=== PATIENT | female | born 1960 | race Caucasian/White ===

== ENCOUNTER 2016-06-19 18:52 | Inpatient (IN) | payer OTHER ==
[~2016-06-19] VITALS: Ht 157.5 cm; Wt 75.5 kg
[~2016-06-19 18:52] MED LIST: COL100UDC NG; COR200 NG; FERL NG; FORTAZ IV; HEP5I SC; IND10 NG; IPRATROPIUM BROM3 M2 HHN; LAC NG; MOR10I IV; PROT40I IV; ZOFI IV; ZOS3PM IV; [UNRECOGNIZED DRUG - CODE] IV
[2016-06-19 21:14] LABS: BASOPHIL % 0.4 % (0-2); PLATELET COUNT 159 x10^3mcL (130-400)
[2016-06-19 21:17] LABS: RED CELL DISTRIBUTION WIDTH 15.3 % (11.5-14.5)
[2016-06-19 21:23] LABS: ALKALINE PHOSPHATASE 168 U/L (46-116); ALT/SGPT 34 U/L (14-59); AMYLASE 31 U/L (25-115); AST/SGOT 26 U/L (15-37); BILIRUBIN TOTAL 11.7 mg/dL (0.20-1.00); CALCIUM 8.1 mg/dL (8.5-10.1); CARBON DIOXIDE 31.5 mmol/L (21-32); CHLORIDE SERUM 100 mmol/L (98-107); CREATININE SERUM 0.5 mg/dL (0.6-1.0); GFR1 > 60 mL/min; GLUCOSE SERUM 145 mg/dL (74-106); LIPASE 163 IU/L (73-393); SODIUM SERUM 137 mmol/L (136-145)
[2016-06-19 21:26] LABS: ALBUMIN 2.4 g/dL (3.4-5.0)
[2016-06-19 21:28] LABS: POTASSIUM SERUM 2.9 mmol/L (3.5-5.1)
[2016-06-19 23:59] VITALS: BP 139/69
[2016-06-20] LABS: CHOLESTEROL/HDL RATIO 8.4
[2016-06-20 00:09] LABS: FREE T4 6.37 ng/dL (0.76-1.46); T3 TOTAL 4.7 ng/mL
[2016-06-20 00:11] LABS: FREE THYROXINE INDEX 8.5 ug/dL (1.4-4.5); T4(THYROXINE) 20.7 ug/dL (4.7-13.3)
[2016-06-20 01:09] LABS: BILIRUBIN DIRECT 9.62 mg/dL (0.0-0.2); BILIRUBIN TOTAL 11.8 mg/dL (0.20-1.00)
[2016-06-20 06:19] LABS: CHLORIDE SERUM 105 mmol/L (98-107); CREATININE SERUM 0.4 mg/dL (0.6-1.0); GFR1 > 60 mL/min; GLUCOSE SERUM 120 mg/dL (74-106); MAGNESIUM 1.9 mg/dL (1.8-2.4); PHOSPHOROUS 3.4 mg/dL (2.5-4.9); POTASSIUM SERUM 3.3 mmol/L (3.5-5.1); SODIUM SERUM 140 mmol/L (136-145)
[2016-06-20 06:53] LABS: PLATELET COUNT 120 x10^3mcL (130-400); RED CELL DISTRIBUTION WIDTH 15.5 % (11.5-14.5)
[2016-06-20 10:08] VITALS: BP 126/62
[2016-06-20 13:29] VITALS: BP 112/59
[2016-06-20 16:14] VITALS: BP 101/58
[2016-06-20 20:46] VITALS: BP 113/59
[2016-06-21 05:31] VITALS: BP 139/64
[2016-06-21 06:13] LABS: BASOPHIL % 0.3 % (0-2)
[2016-06-21 06:35] LABS: ALKALINE PHOSPHATASE 114 U/L (46-116); ALT/SGPT 24 U/L (14-59); AST/SGOT 30 U/L (15-37); BILIRUBIN TOTAL 7.1 mg/dL (0.20-1.00); CALCIUM 7.8 mg/dL (8.5-10.1); CARBON DIOXIDE 27.5 mmol/L (21-32); CHLORIDE SERUM 107 mmol/L (98-107); CREATININE SERUM 0.4 mg/dL (0.6-1.0); GFR1 > 60 mL/min; GLUCOSE SERUM 98 mg/dL (74-106); MAGNESIUM 1.7 mg/dL (1.8-2.4); PHOSPHOROUS 3.4 mg/dL (2.5-4.9); SODIUM SERUM 143 mmol/L (136-145)
[2016-06-21 06:36] LABS: ALBUMIN 1.6 g/dL (3.4-5.0); TOTAL PROTEIN, SERUM 5.7 g/dL (6.4-8.2)
[2016-06-21 06:59] LABS: PLATELET COUNT 119 x10^3mcL (130-400); RED CELL DISTRIBUTION WIDTH 15.6 % (11.5-14.5)
[2016-06-21 09:35] VITALS: BP 149/74
[2016-06-21 17:00] VITALS: BP 140/62
[2016-06-21 22:02] VITALS: BP 119/60
[2016-06-22 05:52] LABS: BASOPHIL % 0.3 % (0-2); PLATELET COUNT 149 x10^3mcL (130-400)
[2016-06-22 06:10] VITALS: BP 106/60
[2016-06-22 06:10] LABS: CALCIUM 8.1 mg/dL (8.5-10.1); CARBON DIOXIDE 28.2 mmol/L (21-32); CHLORIDE SERUM 108 mmol/L (98-107); CREATININE SERUM 0.5 mg/dL (0.6-1.0); GFR1 > 60 mL/min; GLUCOSE SERUM 140 mg/dL (74-106); MAGNESIUM 1.8 mg/dL (1.8-2.4); PHOSPHOROUS 4.1 mg/dL (2.5-4.9); SODIUM SERUM 144 mmol/L (136-145)
[2016-06-22 06:44] LABS: RED CELL DISTRIBUTION WIDTH 16.3 % (11.5-14.5)
[2016-06-22 10:40] VITALS: BP 105/54
[2016-06-22 14:20] VITALS: BP 106/58
[2016-06-22 16:10] VITALS: Ht 157.5 cm; Wt 75.5 kg
[2016-06-22 18:05] VITALS: BP 96/50
[2016-06-22 20:25] VITALS: BP 112/52
[2016-06-23 05:29] VITALS: BP 110/57
[2016-06-23 05:39] LABS: BASOPHIL % 0.2 % (0-2); PLATELET COUNT 134 x10^3mcL (130-400)
[2016-06-23 05:51] LABS: ALBUMIN 1.5 g/dL (3.4-5.0); ALKALINE PHOSPHATASE 89 U/L (46-116); ALT/SGPT 23 U/L (14-59); AST/SGOT 31 U/L (15-37); BILIRUBIN TOTAL 3.2 mg/dL (0.20-1.00); CALCIUM 7.7 mg/dL (8.5-10.1); CARBON DIOXIDE 29.4 mmol/L (21-32); CHLORIDE SERUM 110 mmol/L (98-107); CREATININE SERUM 0.5 mg/dL (0.6-1.0); GFR1 > 60 mL/min; GLUCOSE SERUM 109 mg/dL (74-106); MAGNESIUM 1.5 mg/dL (1.8-2.4); POTASSIUM SERUM 3.5 mmol/L (3.5-5.1); SODIUM SERUM 145 mmol/L (136-145); TOTAL PROTEIN, SERUM 5.6 g/dL (6.4-8.2)
[2016-06-23 06:40] LABS: RED CELL DISTRIBUTION WIDTH 15.6 % (11.5-14.5)
[2016-06-23 09:40] VITALS: BP 112/58
[2016-06-23] MEDS ORDERED: IND10 PO (11:39)
[2016-06-23] MEDS ORDERED: COL100 PO (11:41)
[2016-06-23] MEDS ORDERED: LAC PO (11:42)
[2016-06-23] MEDS ORDERED: NORCO1 TA2 PO (11:44)
[2016-06-23] MEDS ORDERED: KEFLEX500 M1 PO (11:44)
[2016-06-23] MEDS ORDERED: MOT600 PO (11:45)
[2016-06-23 15:00] VITALS: BP 112/58
[2016-06-23 16:53] VITALS: BP 115/70
== END 2016-06-23 17:23 | disposition home or self-care (01) | DRG 263 ==
LOC: ED 18:52 → DU 22:38 → MU 06-23 08:29
PROVIDERS: Emergency Medicine; Family Medicine; Surgery; ADMIT Family Medicine
PROC: 0FT44ZZ Resection of Gallbladder, Percutaneous Endoscopic Approach (ICD-10-PCS; 2016-06-21)
PROC: 0F9440Z Drainage of Gallbladder with Drainage Device, Percutaneous Endoscopic Approach (ICD-10-PCS; 2016-06-21)
PROC: 0FT44ZZ Resection of Gallbladder, Percutaneous Endoscopic Approach (ICD-10-PCS; 2016-06-21)
PROC: 0F798DZ Dilation of Common Bile Duct with Intraluminal Device, Via Natural or Artificial Opening Endoscopic (ICD-10-PCS; principal; 2016-06-21 10:00)
DX: K80.01 Calculus of gallbladder with acute cholecystitis with obstruction (principal); N17.0 Acute kidney failure with tubular necrosis; E43 Unspecified severe protein-calorie malnutrition; I10 Essential (primary) hypertension; E80.6 Other disorders of bilirubin metabolism; E87.6 Hypokalemia; E05.90 Thyrotoxicosis, unspecified without thyrotoxic crisis or storm; H54.2 Low vision, both eyes; K83.1 Obstruction of bile duct; E83.42 Hypomagnesemia; Z83.3 Family history of diabetes mellitus
CPT/HCPCS: 43262; 80307; 83880; 84439; 94150; C1769; C2625; J0295; J0330; J0690; J1610; J1800; J2175; J2250; J2270; J2405; J2704; J2710; J3010; J3475; J3480; J3490; J7030; J7120; Q0092; Q9967

== ENCOUNTER 2017-09-28 06:42 | Day surgery (SDC) | payer OTHER ==
[2017-09-27 12:42] LABS: BASOPHIL % 0.2 % (0-2); PLATELET COUNT 185 x10^3mcL (130-400); RED CELL DISTRIBUTION WIDTH 15.4 % (11.5-14.5)
[2017-09-27 12:51] LABS: CALCIUM 8.6 mg/dL (8.5-10.1); CARBON DIOXIDE 29.8 mmol/L (21-32); CHLORIDE SERUM 105 mmol/L (98-107); CREATININE SERUM 0.7 mg/dL (0.6-1.0); GFR1 > 60 mL/min; GLUCOSE SERUM 108 mg/dL (74-106); POTASSIUM SERUM 4.2 mmol/L (3.5-5.1); SODIUM SERUM 140 mmol/L (136-145)
[~2017-09-28] VITALS: Ht 160 cm; Wt 78.0 kg
[~2017-09-28 06:42] MED LIST changes: +COL100 PO; +IND10 PO; +KEFLEX500 M1 PO; +LAC PO; +MOT600 PO; +NORCO1 TA2 PO
[2017-09-28 06:56] VITALS: BP 153/89
[2017-09-28 11:43] VITALS: BP 122/75
== END 2017-09-28 10:20 | disposition home or self-care (01) ==
LOC: DS 06:42 → OR 07:30 → DS 10:20
PROVIDERS: Internal Medicine Gastroenterology
PROC: 0FPB8DZ Removal of Intraluminal Device from Hepatobiliary Duct, Via Natural or Artificial Opening Endoscopic (ICD-10-PCS; principal; 2017-09-28 07:30)
PROC: 0FC98ZZ Extirpation of Matter from Common Bile Duct, Via Natural or Artificial Opening Endoscopic (ICD-10-PCS; 2017-09-28 07:30)
PROC: 0FC78ZZ Extirpation of Matter from Common Hepatic Duct, Via Natural or Artificial Opening Endoscopic (ICD-10-PCS; 2017-09-28 07:30)
DX: Z46.89 Encounter for fitting and adjustment of other specified devices (principal); K80.50 Calculus of bile duct without cholangitis or cholecystitis without obstruction; I10 Essential (primary) hypertension; E05.90 Thyrotoxicosis, unspecified without thyrotoxic crisis or storm; G40.909 Epilepsy, unspecified, not intractable, without status epilepticus; Z86.73 Personal history of transient ischemic attack (TIA), and cerebral infarction without residual deficits
CPT/HCPCS: 43260; C1769; J0295; J1610; J2704; J3490; J7120; Q9967

== ENCOUNTER 2017-12-12 20:24 | Emergency (ER) | payer OTHER ==
[~2017-12-12] VITALS: Ht 157.5 cm; Wt 78.5 kg
[2017-12-12 23:35] VITALS: BP 140/86
== END 2017-12-12 23:35 | disposition home or self-care (01) ==
LOC: ED 20:24
DX: S92.511A Displaced fracture of proximal phalanx of right lesser toe(s), initial encounter for closed fracture (principal); H54.7 Unspecified visual loss; W22.8XXA Striking against or struck by other objects, initial encounter; Y93.89 Activity, other specified; Y92.89 Other specified places as the place of occurrence of the external cause; Y99.8 Other external cause status